=== PATIENT | female | born 1960 | race Caucasian/White ===

== ENCOUNTER → 2019-12-25 10:40 | Outpatient (BNVA) | payer BC, SELFPAY | PROVIDERS: PCP Internal Medicine; Visit Provider Internal Medicine Gastroenterology | DX: Z76.89 Persons encountering health services in other specified circumstances (principal) ==

== ENCOUNTER → 2020-03-25 09:38 | Outpatient (BNVA) | payer BC, SELFPAY | PROVIDERS: PCP Internal Medicine; Visit Provider Internal Medicine Gastroenterology | DX: Z76.89 Persons encountering health services in other specified circumstances (principal) ==

== ENCOUNTER → 2020-09-09 11:21 | Outpatient (BNVA) | payer BC, SELFPAY | PROVIDERS: PCP Internal Medicine; Visit Provider Internal Medicine Gastroenterology ==

== ENCOUNTER 2021-03-15 08:14 | Day surgery (SDC) | payer BC, SELFPAY ==
--- NOTE | 2021-03-14 10:49 | P.CONAN_ITS ---
Documented by User: Aruna Mann NP 03/14/21 10:53 HPI - Anesthesia Eval Consult details Narrative: 60yo F for Upper Endoscopy and Colonoscopy PMFSH Active Problems Active Problems: All Active Problems (Updated 12/25/19 @ 11:06 by Blaise Person MD) Constipation by delayed colonic transit (Acute) Past Medical History Medical History Hypothyroid Irritable bowel syndrome with constipation Family History Family History Father History of high blood pressure Mother No problems noted. Surgical History Surgical History History of colonoscopy Hx of endoscopy Social History Social History Alcohol intake: never Patient Tobacco Use Status: Never used Tobacco Use of substances other than those prescribed or required for medical reasons: No Are you DNR?: No Advance Directives: No Advance Directives Information Provided: Yes Recently lost weight without trying: No Meds Allergies Allergy/AdvReac Type Severity Reaction Status Date / Time erythromycin base Allergy Severe INABILITY Verified 09/09/20 11:22 [ERYTHROMYCIN BASE] TO FUNCTION Tetracyclines [TETRACYCLINES] Allergy Severe INABILITY Verified 09/09/20 11:22 TO FUNCTION levofloxacin [From LEVAQUIN] Allergy Intermediate HIVES Verified 09/09/20 11:22 Penicillins [PENICILLINS] Allergy Intermediate HIVES Verified 09/09/20 11:22 Home Medications Medication Instructions Recorded Confirmed Last Taken Type bupropion HCl 300 mg 24 hr tablet, 300 mg PO QAM 12/25/19 12/25/19 Unknown H istory extended release (Wellbutrin XL) cyanocobalamin (vitamin B-12) mcg IM 12/25/19 12/25/19 Unknown History 1,000 mcg/mL injection solution flu vacc [id number] 6mos up(PF) ml IM 12/25/19 12/25/19 Unknown History folic acid 0.8 mg capsule 0.8 mg PO DAILY 12/25/19 12/25/19 Unknown History lactobacillus combination no.8 3 3,000 mmu cells PO DAILY 12/25/19 12/25/19 Unknown History billion cell capsule (Adult Probiotic) levothyroxine 100 mcg tablet 100 mcg PO DAILY 12/25/19 12/25/19 Unknown History varicella-zoster glycoE [id number] 0.5 ml IM DIRECTED 12/25/19 12/25/19 Unknown History adj(PF) 50 mcg/0.5 mL IM susp, kit prucalopride 2 mg tablet 2 mg PO DAILY 03/25/20 Unknown History (Motegrity) Exam Exam Date and Time: March 14, 2021 1049 Assessment and Plan Assessment Anesthesia Assessment: Chart Reviewed Documented by User: Chrissy Bellamy MD 03/15/21 08:39 [facility] Past Medical History Medical History Hypothyroid Irritable bowel syndrome with constipation Functional capacity: independent ambulation Patient : No Family History Family History Father History of high blood pressure Mother No problems noted. Family history of problems with anesthesia: No Surgical History Surgical History History of colonoscopy Hx of endoscopy History of Problems with Anesthesia: No Social History Social History Alcohol intake: never Patient Tobacco Use Status: Never used Tobacco Use of substances other than those prescribed or required for medical reasons: No Are you DNR?: No Advance Directives: No Advance Directives Information Provided: Yes Recently lost weight without trying: No Meds Allergies Allergy/AdvReac Type Severity Reaction Status Date / Time erythromycin base Allergy Severe INABILITY Verified 09/09/20 11:22 [ERYTHROMYCIN BASE] TO FUNCTION Tetracyclines [TETRACYCLINES] Allergy Severe INABILITY Verified 09/09/20 11:22 TO FUNCTION levofloxacin [From LEVAQUIN] Allergy Intermediate HIVES Verified 09/09/20 11:22 Penicillins [PENICILLINS] Allergy Intermediate HIVES Verified 09/09/20 11:22 Home Medications Medication Instructions Recorded Confirmed Last Taken Type bupropion HCl 300 mg 24 hr tablet, 300 mg PO QAM 12/25/19 12/25/19 Unknown History extended release (Wellbutrin XL) cyanocobalamin (vitamin B-12) mcg IM 12/25/19 12/25/19 Unknown History 1,000 mcg/mL injection solution flu vacc [id number] 6mos up(PF) ml IM 12/25/19 12/25/19 Unknown History folic acid 0.8 mg capsule 0.8 mg PO DAILY 12/25/19 12/25/19 Unknown History lactobacillus combination no.8 3 3,000 mmu cells PO DAILY 12/25/19 12/25/19 Unknown History billion cell capsule (Adult Probiotic) levothyroxine 100 mcg tablet 100 mcg PO DAILY 12/25/19 12/25/19 Unknown History varicella-zoster glycoE [id number] 0.5 ml IM DIRECTED 12/25/19 12/25/19 Unknown History adj(PF) 50 mcg/0.5 mL IM susp, kit prucalopride 2 mg tablet 2 mg PO DAILY 03/25/20 Unknown History (Motegrity) Exam Airway Mallampati Class: II TM Dist: >3cm Neck ROM: Full Heart: RRR Lungs: CTA Assessment and Plan Final Anesthetic Review Family History of Problems with Anesthesia: No History of Problems with Anesthesia: No ASA Class: II Final Preanesthetic Review: No Changes in Pt Med Stat, Meds/Allgs Chart Reviewed, Consent Obtained/Reviewed and Anes Risks/Benef Reviewed Patient Risk: Low Procedure Risk: Low Anesthetic Plan Anesthetic Plan: GA and MAC: Disposition: Standard PACU
[2021-03-15 08:26] VITALS: BP 122/70; PULSE 71; RESP 14; TEMP 37.1; O2SAT 100; BMI 13.1
--- NOTE | 2021-03-15 08:45 | HO.ANESPROP2 ---
[facility] Active Problems Active Problems: All Active Problems (Updated 03/14/21 @ 10:53 by Aruna Mann NP) Constipation by delayed colonic transit (Acute) Past Medical History Medical History Hypothyroid Irritable bowel syndrome with constipation Functional capacity: independent ambulation Family History Family History Father History of high blood pressure Mother No problems noted. Family history of problems with anesthesia: No Surgical History Surgical History History of colonoscopy Hx of endoscopy History of Problems with Anesthesia: No Social History Social History Alcohol intake: never Patient Tobacco Use Status: Never used Tobacco Use of substances other than those prescribed or required for medical reasons: No Are you DNR?: No Advance Directives: No Advance Directives Information Provided: Yes Recently lost weight without trying: No Patient : No Meds Allergies Allergy/AdvReac Type Severity Reaction Status Date / Time erythromycin base Allergy Severe INABILITY Verified 09/09/20 11:22 [ERYTHROMYCIN BASE] TO FUNCTION Tetracyclines [TETRACYCLINES] Allergy Severe INABILITY Verified 09/09/20 11:22 TO FUNCTION levofloxacin [From LEVAQUIN] Allergy Intermediate HIVES Verified 09/09/20 11:22 Penicillins [PENICILLINS] Allergy Intermediate HIVES Verified 09/09/20 11:22 Active Medications: Current Medications Lactated Ringer's (Lr) 1,000 mls @ 100 mls/hr IVCONT .Q10H [facility] Home Medications Medication Instructions Recorded Confirmed Last Taken Type bupropion HCl 300 mg 24 hr tablet, 300 mg PO QAM 12/25/19 12/25/19 Unknown History extended release (Wellbutrin XL) cyanocobalamin (vitamin B-12) mcg IM 12/25/19 12/25/19 Unknown History 1,000 mcg/mL injection solution flu vacc [id number] 6mos up(PF) ml IM 12/25/19 12/25/19 Unknown History folic acid 0.8 mg capsule 0.8 mg PO DAILY 12/25/19 12/25/19 Unknown History lactobacillus combination no.8 3 3,000 mmu cells PO DAILY 12/25/19 12/25/19 Unknown History billion cell capsule (Adult Probiotic) levothyroxine 100 mcg tablet 100 mcg PO DAILY 12/25/19 12/25/19 Unknown History varicella-zoster glycoE [id number]-[id number] 0.5 ml IM DIRECTED 12/25/19 12/25/19 Unknown History adj(PF) 50 mcg/0.5 mL IM susp, kit prucalopride 2 mg tablet 2 mg PO DAILY 03/25/20 Unknown History (Motegrity) Exam Exam Date and Time: March 15, 2021 0845 Height,Weight and Vital Signs: Height 5 ft 2 in Weight 32.659 kg Last Vital Signs Temp 98.7 F 03/15/21 08:26 Pulse 71 03/15/21 08:26 Resp 14 03/15/21 08:26 BP 122/70 03/15/21 08:26 Pulse Ox 100 03/15/21 08:26 Airway Mallampati Class: II TM Dist: >3cm Neck ROM: Full Heart: RRR Lungs: CtA Assessment and Plan Final Anesthetic Review Family History of Problems with Anesthesia: No History of Problems with Anesthesia: No ASA Class: II Final Preanesthetic Review: No Changes in Pt Med Stat, Meds/Allgs Chart Reviewed, Consent Obtained/Reviewed and Anes Risks/Benef Reviewed Patient Risk: Low Procedure Risk: Low Anesthetic Plan Anesthetic Plan: MAC: Disposition: Standard PACU
[2021-03-15] MEDS: Lactated Ringers 1,000 ML 100 ML IVCONT (08:48)
--- NOTE | 2021-03-15 08:53 | MHC.SHP ---
Pre-Procedural Eval Section A Date of Service: 03/15/21 Section B Chief Complaint: Constipation, Weight Loss Relevant Family History (Specify if Yes): Yes Relevant Social History: None Present Medications: see Short Stay Collaborative assessment Medical History: Significant History (Hypothyroid Irritable bowel syndrome with constipation) History of Previous Operations: Relevant previous surgery/procedure and date(s) (hysterectomy and oophorectomy in 10/2019) Allergies: Allergies Allergy/AdvReac Type Severity Reaction Status Date / Time erythromycin base Allergy Severe INABILITY Verified 09/09/20 11:22 [ERYTHROMYCIN BASE] TO FUNCTION Tetracyclines [TETRACYCLINES] Allergy Severe INABILITY Verified 09/09/20 11:22 TO FUNCTION levofloxacin [From LEVAQUIN] Allergy Intermediate HIVES Verified 09/09/20 11:22 Penicillins [PENICILLINS] Allergy Intermediate HIVES Verified 09/09/20 11:22 Review of Systems Sugical H&P ROS: Negative: Constitution, Cardiovascular, Respiratory, Neurological, Psychiatric, Hem-Onc, Allergic/Immunologic, Gastrointestinal, Genitourinary, Musculoskeletal, Integumentary, Endocrine and Eyes/Ears/Nose/Throat Exam Surgical H&P Exam: Normal: HEENT, Normal: Heart, Normal: Lungs, Normal: Extremities, Normal: Abdomen, Normal: Skin and Normal: Neurological Plan Diagnosis/Plan: Unchanged I have reviewed the history and physical and performed a pertinent physical examination on my patient. No changes have occurred unless specified.
--- NOTE | 2021-03-15 10:01 | PM.OP ---
Brief Operative Note Date of Service: 03/15/21 Pre-op diagnosis: weight loss, constipation, hx of polyps Post-op diagnosis: same Procedure: see op note Surgeon: Blaise Person MD Anesthesia: MAC Was an Film Editor Supervisor used for this Procedure?: No Estimated blood loss (mL): 0 Condition: stable Disposition: PACU
--- NOTE | 2021-03-15 10:01 | W.PM.OPN ---
Operative Note Operative Note Date of Service: 03/15/21 Narrative: Operative Information Procedure Description: EGD, Colonoscopy FLEXIBLE TRANSORAL UPPER GASTROINTESTINAL ENDOSCOPY AND COLONOSCOPY PROCEDURE NOTE UPPER ENDOSCOPY Consent: Indications for the procedure and potential complications of bleeding, perforation, reaction to medications and missed diagnosis were discussed with the patient and informed consent was obtained. Instrument: Olympus GIF H 190 J mid size upper endoscope Monitoring: Vital signs and clinical assessment, continuous EKG monitoring, Pulse oximetry, Carbon Dioxide monitoring and blood pressure monitoring were done throughout the procedure. Procedure: The patient was placed in the left lateral decubitis position and pre-procedure medications were administered and a bite block was placed. The endoscope was inserted into the mouth and advanced under direct vision to the third part of duodenum. A careful inspection was made as the upper endoscope was withdrawn including a retroflexed examination of the proximal stomach; Findings and interventions are described below. Findings: Larynx:normal Esophagus: GE junction at 36 cm, diaphragm hiatus at 36 cm, possible barretts short segment with mild esophagitis, bx taken from GEJ and random esophagus Stomach: Normal mucosa. Scattered fundic gland polyps. Biopsies were obtained from pylorus, greater curve, lesser curve, and fundus, angularis.. Grade 2 flap valve on retroflexed examination of the cardia. Duodenum: Normal bulb and descending duodenum, bx taken Intervention: Biopsies as noted above COLONOSCOPY Instrument: Olympus variable stiffness pediatric scope 190L Colonoscopy Monitoring: Vital signs and clinical assessment, continuous EKG monitoring, Pulse oximetry, Carbon Dioxide monitoring and blood pressure monitoring were done throughout the procedure. Colon withdrawal time was 14 minutes. Procedure: The patient was placed in the left lateral decubitis position and pre-procedure medications were administered. After a digital rectal examination of the ano-rectum, the video colonoscope was inserted into the rectum and advanced through the colon to the cecum/TI. The colonoscope was slowly withdrawn in a retrograde panoramic fashion and the colon mucosa was carefully examined including a retroflexed view of the rectum. Findings and interventions are described below. Procedure Difficulty: easy Patchy areas of melanosis coli Findings: Terminal Ileum-normal, bx taken bx taken from right, left, transverse and rectum in separate jars. Cecum:normal Ascending Colon: normal, prior tattoo from her last colonoscopy noted in distal ascending colon Transverse Colon -normal Descending Colon:normal Sigmoid Colon: normal Rectum: Retroflexion with small internal hemorrhoids, grade I Anorectum - normal Colon preparation: [place] Bowel Preparation Scale Right colon; 2 Transverse colon: 2 Left colon; 2 (0 = Unprepared colon segment with mucosa not seen due to solid stool that cannot be cleared. 1 = Portion of mucosa of the colon segment seen, but other areas of the colon segment not well seen due to staining, residual stool and/or opaque liquid. 2 = Minor amount of residual staining, small fragments of stool and/or opaque liquid, but mucosa of colon segment seen well. 3 = Entire mucosa of colon segment seen well with no residual staining, small fragments of stool or opaque liquid) Impression and Post Procedure Diagnosis: Endoscopy Findings: possible barretts esophagitis fundic gland polyps Colonoscopy Findings: internal hemorrhoids melanosis coli Plan: Await Pathology results Repeat Colonoscopy in 5 years due to hx of polyps or earlier if clinically indicated High fiber diet leaflet avoid straining at stool, epsom salts and sitz bath, anusol supps or cream Above findings were reviewed with the patient and relevant handouts were provided if indicated.
[2021-03-15 10:07] VITALS: BP 117/45; PULSE 68; RESP 16; TEMP 36.1; O2SAT 100
[2021-03-15 10:21] VITALS: BP 127/58; PULSE 66; RESP 16; TEMP 36.1; O2SAT 100
--- NOTE | 2021-03-15 12:00 | HO.POSTANES ---
Post Anesthesia Evaluation Post Anesthesia Evaluation Vital Signs: Vital Signs Temp Pulse Resp BP Pulse Ox 03/15/21 10:21 97 F 66 16 127/58 L 100 03/15/21 10:07 97 F 68 16 117/45 L 100 03/15/21 08:26 98.7 F 71 14 122/70 100 Anesthesia: Monitored Mental Status: Awake Pain Control: Satisfactory Nausea/Vomiting: None Hydration: Adequate Anesthesia-Related Issues: No Anes. Related Issues
== END 2021-03-15 11:05 ==
LOC: HO.SSS 08:14
PROVIDERS: PCP Internal Medicine; Visit Provider Internal Medicine Gastroenterology
PROC: (CPT 45380; principal; 2021-03-15 09:20)
DX: K59.09 Other constipation (principal); Z86.010 Personal history of colon polyps; K63.89 Other specified diseases of intestine; R63.4 Abnormal weight loss; K64.0 First degree hemorrhoids; K31.7 Polyp of stomach and duodenum; K20.80 Other esophagitis without bleeding; K44.9 Diaphragmatic hernia without obstruction or gangrene; E03.9 Hypothyroidism, unspecified; Z79.899 Other long term (current) drug therapy; Z88.0 Allergy status to penicillin; Z88.1 Allergy status to other antibiotic agents
CPT/HCPCS: 45380; 43239; 88305; 88342; J2370

== ENCOUNTER → 2021-03-28 09:24 | Outpatient (BNVA) | payer BC, SELFPAY | PROVIDERS: PCP Internal Medicine; Visit Provider Internal Medicine Gastroenterology ==

== ENCOUNTER → 2021-07-14 08:52 | Outpatient (BNVA) | payer BC, SELFPAY | PROVIDERS: PCP Internal Medicine; Visit Provider Psychiatry & Neurology Neurology | DX: Z13.89 Encounter for screening for other disorder (principal) ==

== ENCOUNTER → 2022-04-23 10:45 | Outpatient (BNVA) | payer BC, SELFPAY | PROVIDERS: PCP Internal Medicine; Visit Provider Psychiatry & Neurology Neurology | DX: F41.9 Anxiety disorder, unspecified (principal); R41.89 Other symptoms and signs involving cognitive functions and awareness; D32.9 Benign neoplasm of meninges, unspecified ==

== ENCOUNTER → 2022-07-09 08:56 | Outpatient (BNVA) | payer BC, SELFPAY | PROVIDERS: PCP Internal Medicine; Visit Provider Psychiatry & Neurology Neurology | DX: Z13.89 Encounter for screening for other disorder (principal) ==

== ENCOUNTER 2022-08-22 15:40 | Outpatient (REF) | payer BC, SELFPAY ==
--- NOTE | ~2022-08-22 | MR_ITS ---
EXAMINATION: MR BRAIN WITHOUT CONTRAST CLINICAL INFORMATION: Follow-up meningioma COMPARISON: MRI brain 06/28/2020 TECHNIQUE: MRI of the brain was obtained using routine sequences without contrast. FINDINGS: Stable 5 mm densely calcified mass along the lateral right frontal convexity most suggestive of a calcified meningioma. No significant mass effect on the subjacent brain parenchyma or vasogenic edema. No acute infarct. No acute intracranial hemorrhage or extra-axial fluid collection. Stable small to moderate generalized parenchymal volume loss punctate a few scattered punctate T2 FLAIR hyperintense foci in the subcortical and periventricular white matter no clinical significance. T2 FLAIR hyperintense focus in the right periatrial white matter of no clinical significance. Normal intracranial arterial and dural venous sinus flow voids. Normal appearance of the midline structures. The orbits are grossly unremarkable. Worsening paranasal sinus mucosal disease with moderate ethmoid air cell mucosal thickening and increased mild left greater than right maxillary mucosal thickening. New air-fluid level in the left maxillary sinus and retention cyst/polyp in the right maxillary sinus alveolar recess. New left mastoid effusion. Retention cysts in the fossa of Rosenmuller in the nasopharynx, larger on the left. Normal marrow signal. Cervical spondylosis, incompletely imaged. MR/MR head/brain wo con IMPRESSION: Stable 5 mm densely calcified mass along the lateral right frontal convexity most suggestive of a calcified meningioma. No significant mass effect on the subjacent brain parenchyma or vasogenic edema. Worsening paranasal sinus mucosal disease as above, including air-fluid level in the left maxillary sinus, which can be correlated clinically for acute sinusitis.
== END 2022-08-22 15:41 | disposition home or self-care (01) ==
LOC: HO.MRI 15:40
PROVIDERS: PCP Internal Medicine; Visit Provider Psychiatry & Neurology Neurology
DX: D32.9 Benign neoplasm of meninges, unspecified (principal)
CPT/HCPCS: 70551

== ENCOUNTER 2022-10-23 07:58 | Outpatient (REF) | payer BC, SELFPAY ==
--- NOTE | 2022-10-23 08:02 | EEG_ITS ---
FINDINGS: The waking background activity consists of a moderate voltage, well-defined 8 to 9 hertz alpha frequency intermixed anteriorly with low-voltage fast frequencies. Photic stimulation is without activation. Hyperventilation was omitted. No sleep stages are identified. No focal, lateralizing, or paroxysmal discharges are seen. IMPRESSION: This waking EEG is within normal limits. MD MOODY Flores/BELA / [id number]
== END 2022-10-23 07:59 | disposition home or self-care (01) ==
LOC: HO.NEURO 07:58
PROVIDERS: PCP Internal Medicine; Visit Provider Psychiatry & Neurology Neurology
DX: R41.89 Other symptoms and signs involving cognitive functions and awareness (principal)
CPT/HCPCS: 95816

== ENCOUNTER 2022-12-03 09:23 | Outpatient (AMB) | payer BC, SELFPAY ==
--- NOTE | 2022-12-03 09:28 | MHC.OFFVIS ---
Intake Vital Signs 12/03/22 09:30 Height 5 ft 1 in Weight 135 lb 6 oz BMI 25.6 BP 140/66 H Blood Pressure Location Rt brachial Position Sitting Pulse 72 Pulse Source Pulse Oximeter Pulse Oximetry (%) 95 Oxygen Delivery Method Room Air Intake Visit Reasons: 6m f/u memory issues-confirmed Intake Note: Pt presents to the office today for a 6 month follow up memory issues. Pt states she has been doing well. Patients states he believes her motor skills may have declined a little but otherwise nothing else has gotten worse since she was last seen. Accompanied by: Spouse Allergies erythromycin base [ERYTHROMYCIN BASE] Allergy (Severe, Verified 12/03/22 09:32) INABILITY TO FUNCTION Tetracyclines [TETRACYCLINES] Allergy (Severe, Verified 12/03/22 09:32) INABILITY TO FUNCTION levofloxacin [From LEVAQUIN] Allergy (Intermediate, Verified 12/03/22 09:32) HIVES Penicillins [PENICILLINS] Allergy (Intermediate, Verified 12/03/22 09:32) HIVES Medication List - Last Reconciled 12/03/22 by Aster Davidson MD calcium carbonate (Calcium) 600 mg PO DAILY cholecalciferol (vitamin D3) 25 mcg PO DAILY escitalopram oxalate 10 mg PO DAILY fluticasone propionate 50 mcg/actuation (Flonase Allergy Relief) 1 spray intranasal DAILY folic acid 0.8 mg PO DAILY lactobacillus combination no.8 (Adult Probiotic) 3,000 mmu cells PO DAILY levothyroxine 100 mcg PO DAILY levothyroxine (Synthroid) 88 mcg PO DAILY omeprazole 20 mg PO DAILY 90 days HPI HPI Comments History of Present Illness Details ???Right frontal meningioma ANorexia ?62y/o female comes for follow up.Her reports stable cognitive issues but has noticed some motor difficulty . she has trouble getting in and out of car. she has gained weight, working with operating room surgical technician but still has trouble complying.she is working with her therapist. CT head , EKG , labs were done. [facility]. She was told that CT showed ? NPH she reports difficulty with memory , word finding difficulties , foggy. loses her thought. Neuropsych testing is consistent with mild cognitive impairment - likely related to mood. [facility] Medical History Immunoglobulin deficiency Anorexia Graves disease Irritable bowel syndrome with constipation Hypothyroid Surgical History H/O: hysterectomy Hx of endoscopy History of colonoscopy Family History Father History of high blood pressure Mother No problems noted. Social History Alcohol intake: never Patient Tobacco Use Status: Never used Tobacco Physical Exam Vital Signs: Last Vital Signs Pulse 72 12/03/22 09:30 BP 140/66 H 12/03/22 09:30 Pulse Ox 95 12/03/22 09:30 Oxygen Delivery Method Room Air 12/03/22 09:30 BMI result Body Mass Index 25.6 Const General: cooperative, healthy appearing, comfortable and no acute distress Nutritional Appearance: average body habitus Orientation/consciousness: patient oriented x3 Neuro General: patient oriented x3, tone normal, moves all extremities, no focal motor deficits and CN's II-XI intact bilaterally Psych Speech and movement: Slurred speech present and Slowed movement present (Neuro) Affect: Blunted affect present Orientation What is the (year) (season) (date) (day) (month)?: year, season, date, day and month Where are we (state) (county) (town or city) (hospital) (floor)?: state, town or city, hospital/clinic and floor Registration Name of 3 unrelated objects clearly and slowly, then ask patient to repeat all 3 of them. (1st repeat determines score. Make sure they can repeat all three): object 1, object 2 and object 3 Attention & Calculation (CHOOSE ONE) Spell WORLD backwards (DLROW): 5 letters Recall Ask patient to repeat the 3 items from question #3.: object 1, object 2 and object 3 Language Show patient a wristwatch & ask what it is. Repeat for pencil.: watch and pencil Ask the patient to repeat the phrase 'No ifs, ands, or buts' after you.: correct Ask the patient to 'take a piece of paper with their right hand' 'fold paper in half' 'place paper on floor': take paper in right hand, fold paper in half and place paper on floor Print the sentence 'CLOSE YOUR EYES' on a piece. If patient actually closes eyes then score.: followed written direction Give patient a blank piece of paper & ask to write a sentence. Score if it contains a noun & verb.: sentence contains subject and verb Ask patient to copy figure of intersecting pentagons exactly. Score if all 10 angles & 2 intersects are included.: all 10 angles present & 2 are intersected Score Score: 29 Assessment & Plan Assessment & Plan (1) Cognitive change: Code(s): R41.89 - Other symptoms and signs involving cognitive functions and awareness (2) Meningioma: Code(s): D32.9 - Benign neoplasm of meninges, unspecified (3) Anxiety: Code(s): F41.9 - Anxiety disorder, unspecified Plan F/u therapist . Psychiatry evaluation MRI- reviewed Meningioma reviewed neuropsyhc evaluation - repeat She did well on MMSE- her cognitive issues are likely related to poorly controlled mood disorder. Orders: Referrals Neuropsychiatry Referral F41.9 - Anxiety disorder, unspecified, R41.89 - Other symptoms and signs involving cognitive functions and awareness, R63.0 - Anorexia Medications: Changed From escitalopram oxalate 10 mg PO DAILY To escitalopram oxalate 20 mg PO DAILY 30 tabs 6RF Coding Level of Care Code Est Pt Level 4 (22069) Diagnoses Cognitive change R41.89 Meningioma D32.9 Anxiety F41.9
[2022-12-03 09:30] VITALS: BP 140/66; PULSE 72; O2SAT 95; BMI 25.6
== END 2022-12-03 10:06 | disposition home or self-care (01) ==
PROVIDERS: PCP Internal Medicine; Visit Provider Psychiatry & Neurology Neurology
DX: R41.89 Other symptoms and signs involving cognitive functions and awareness (principal); D32.9 Benign neoplasm of meninges, unspecified; F41.9 Anxiety disorder, unspecified
CPT/HCPCS: 99214

== ENCOUNTER → 2022-12-03 09:23 | Outpatient (BNVA) | payer BC, SELFPAY | PROVIDERS: PCP Internal Medicine; Visit Provider Psychiatry & Neurology Neurology ==

== ENCOUNTER 2023-01-09 09:05 | Outpatient (AMB) | payer BC, SELFPAY ==
--- NOTE | 2023-01-09 09:52 | A.OFFVIS_ITS ---
Intake Vital Signs 01/09/23 09:53 Height 5 ft 1 in Weight 135 lb 6 oz BMI 25.6 BP 142/80 H Blood Pressure Location Lt brachial Position Sitting Respiration 16 Pulse 75 Pulse Source Pulse Oximeter Pulse Oximetry (%) 97 Oxygen Delivery Method Room Air Intake Visit Reasons: 6 month follow up-confirmed Intake Note: Pt presents to the office for a 6 month follow up for anxiety. She reports she has seen no change in her symptoms since her last visit. 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: No Allergies erythromycin base [ERYTHROMYCIN BASE] Allergy (Severe, Verified 01/09/23 09:53) INABILITY TO FUNCTION Tetracyclines [TETRACYCLINES] Allergy (Severe, Verified 01/09/23 09:53) INABILITY TO FUNCTION levofloxacin [From LEVAQUIN] Allergy (Intermediate, Verified 01/09/23 09:53) HIVES Penicillins [PENICILLINS] Allergy (Intermediate, Verified 01/09/23 09:53) HIVES Medication List - Last Reconciled 01/09/23 by Aster Davidson MD calcium carbonate (Calcium) 600 mg PO DAILY cholecalciferol (vitamin D3) 25 mcg PO DAILY escitalopram oxalate 20 mg PO DAILY fluticasone propionate 50 mcg/actuation (Flonase Allergy Relief) 1 spray intranasal DAILY folic acid 0.8 mg PO DAILY lactobacillus combination no.8 (Adult Probiotic) 3,000 mmu cells PO DAILY levothyroxine 100 mcg PO DAILY levothyroxine (Synthroid) 88 mcg PO DAILY omeprazole 20 mg PO DAILY 90 days HPI HPI Comments History of Present Illness Details ???Right frontal meningioma ANorexia ?62y/o female comes for follow up.she is alone today for the visit. she has gained weight, working with machine bander and cellophaner helper but still has trouble complying.she is working with her therapist. CT head , EKG , labs were done. she went to [facility]. She was told that CT showed ? NPH she reports difficulty with memory , word finding difficulties , foggy. loses her thought. she still has not seen a psychiatrist.she is working with a therapist. Neuropsych testing is consistent with mild cognitive impairment - likely related to mood. [facility] Medical History Immunoglobulin deficiency Anorexia Graves disease Irritable bowel syndrome with constipation Hypothyroid Surgical History H/O: hysterectomy Hx of endoscopy History of colonoscopy Family History Father History of high blood pressure Mother No problems noted. Social History Alcohol intake: never Patient Tobacco Use Status: Never used Tobacco Physical Exam Vital Signs: Last Vital Signs Pulse 75 01/09/23 09:53 Resp 16 01/09/23 09:53 BP 142/80 H 01/09/23 09:53 Pulse Ox 97 01/09/23 09:53 Oxygen Delivery Method Room Air 01/09/23 09:53 BMI result Body Mass Index 25.6 Const General: cooperative, healthy appearing, comfortable and no acute distress Nutritional Appearance: average body habitus Orientation/consciousness: patient oriented x3 Neuro General: patient oriented x3, tone normal, moves all extremities, no focal motor deficits and CN's II-XI intact bilaterally Psych Speech and movement: Slurred speech present and Slowed movement present (Neuro) Affect: Blunted affect present Assessment & Plan Assessment & Plan (1) Cognitive change: Code(s): R41.89 - Other symptoms and signs involving cognitive functions and awareness (2) Meningioma: Code(s): D32.9 - Benign neoplasm of meninges, unspecified (3) Anxiety: Code(s): F41.9 - Anxiety disorder, unspecified Plan F/u therapist . Psychiatry evaluation MRI- reviewed Meningioma reviewed neuropsyhc evaluation - repeat She did well on MMSE- her cognitive issues are likely related to poorly co ntrolled mood disorder. Medications: Discontinued sumatriptan succinate Discontinued Reason: Doctor's Order take 1 tab at onset of headache; if no relief, may repeat 1 tab after at least 2 hrs; max = 2 tabs/24 hrs PO 14 tabs 0RF Coding Level of Care Code Est Pt Level 4 (10266) Diagnoses Cognitive change R41.89 Meningioma D32.9 Anxiety F41.9
[2023-01-09 09:53] VITALS: BP 142/80; PULSE 75; RESP 16; O2SAT 97; BMI 25.6
== END 2023-01-09 10:29 | disposition home or self-care (01) ==
PROVIDERS: Visit Provider Psychiatry & Neurology Neurology
DX: R41.89 Other symptoms and signs involving cognitive functions and awareness (principal); D32.9 Benign neoplasm of meninges, unspecified; F41.9 Anxiety disorder, unspecified
CPT/HCPCS: 99214

== ENCOUNTER → 2023-01-09 09:05 | Outpatient (BNVA) | payer BC, SELFPAY | PROVIDERS: Visit Provider Psychiatry & Neurology Neurology ==

== ENCOUNTER 2024-12-02 11:49 | Outpatient (REF) | payer BC, SELFPAY ==
--- OUTSIDE RECORDS SUMMARY | 2024-12-02 14:48 | XMS_ITS ---
Author Name [facility] Organization Unknown Results Test Name/Text Value Interpretation Date Range Source ALCOHOL (BLOOD) <3.0 Normal 11/28/2024 - 3 [facility] BILIRUBIN,TOTAL 0.3 mg/dL Normal 11/28/2024 0.3 - 1.2 [facility] ALBUMIN 4.6 g/dL Normal 11/28/2024 3.2 - 4.8 [facility] BUN 27.0 mg/dL Above high normal 11/28/2024 9 - 23 [facility] SODIUM 145.0 mmol/L Normal 11/28/2024 136 - 145 [facility] ALT (SGPT) 13.0 U/L Normal 11/28/2024 10 - 49 [facility] POTASSIUM SERUM 4.0 mmol/L Normal 11/28/2024 3.5 - 5.1 CT [facility] CO2 25.0 mmol/L Normal 11/28/2024 20 - 31 [facility] H CHLORIDE 109.0 mmol/L Above high normal 11/28/2024 98 - 107 [facility] AST (SGOT) 15.0 U/L Normal 11/28/2024 0 - 34 [facility] ALKALINE PHOSPHATASE 121.0 U/L Normal 11/28/2024 45 - 129 [facility] BUN/CREAT.RATIO 25.7 Normal 11/28/2024 [facility] A/G RATIO 2.9 g/dL Normal 11/28/2024 [facility] GLOBULIN 1.6 g/dL Below low normal 11/28/2024 2.2 - 3.5 CT [facility] GLUCOSE 99.0 mg/dL Normal 11/28/2024 74 - 106 [facility] CREATININE 1.05 mg/dL Above high normal 11/28/2024 0.55 - 1. 02 [facility] PROTEIN, TOTAL 6.2 g/dL Normal 11/28/2024 5.7 - 8.2 [facility] PATIENT FASTING? UNKNOWN Normal 11/28/2024 CT [facility] MAGNESIUM 2.2 mg/dL Normal 11/28/2024 1.6 - 2.6 [facility] T4 FREE 1.17 ng/dL Normal 11/29/2024 0.89 - 1.76 [facility] TSH 0.54 uIU/mL Below low normal 11/28/2024 0.55 - 4.7 8 [facility] GFRE 56.0 Below low normal 11/28/2024 60 - CT [facility] AMMONIA < 10 Below low normal 11/28/2024 11 - 32 [facility] ABSOLUTE NUCLEATED RBC 0.0 K/uL Normal 11/28/2024 0 - 0. 012 [facility] RDW 14.6 % Above high normal 11/28/2024 11.1 - 13.3 [facility] IMMATURE GRANULOCYTES 0.0 % Normal 11/28/2024 0 - 0.4 5 [facility] NUCLEATED RBC 0.0 % Normal 11/28/2024 0 - 0.2 [facility] RBC 4.16 M/uL Normal 11/28/2024 4 - 5.4 [facility] ABSOLUTE LYMPHS 1.2 K/uL Below low normal 11/28/2024 1.5 - 4.9 [facility] ABSOLUTE MONOS 0.4 K/uL Normal 11/28/2024 0.2 - 1.5 [facility] ABSOLUTE IMMATURE GRANULOCYTES 0.0 K/uL Normal 11/28/2024 0 - 0.3 [facility] BASOPHILS 1.0 % Normal 11/28/2024 0 - 2 [facility] MPV 10.0 fL Normal 11/28/2024 8 - 12 [facility] MCH 30.0 PG Normal 11/28/2024 27 - 34 [facility] MCV 94.0 fL Normal 11/28/2024 83 - 102 [facility] ABSOLUTE EOS 0.1 K/uL Normal 11/28/2024 0 - 0.7 [facility] LYMPHS 23.0 % Normal 11/28/2024 16 - 50 [facility] GRANULOCYTES 68.0 % Normal 11/28/2024 23 - 78 [facility] PLATELET COUNT 237.0 K/uL Normal 11/28/2024 150 - 480 [facility] ABSOLUTE GRANULOCYTES 3.6 K/uL Normal 11/28/2024 2.2 - 7 .3 [facility] MONOCYTES 7.0 % Normal 11/28/2024 0 - 12 [facility] EOSINOPHILS 2.0 % Normal 11/28/2024 0 - 6 [facility] H MCHC 32.4 g/dL Normal 11/28/2024 31 - 36 [facility] WBC 5.3 K/uL Normal 11/28/2024 3.7 - 10.3 [facility] HCT 38.9 % Normal 11/28/2024 36 - 46 [facility] HGB 12.6 g/dL Normal 11/28/2024 12.1 - 15.7 [facility] H ABSOLUTE BASO 0.0 K/uL Normal 11/28[facility]2024 [facility] Normal 11/28[facility]2024 [facility] AMPHETAMINES Negative Normal 11/28/2024 - [facility] COCAINE Negative Normal 11/28/2024 - [facility] OPIATES Negative Normal 11/28/2024 - [facility] BARBITURATES Negative Normal 11/28/2024 - [facility] BENZODIAZEPINES Negative Normal [facility]/28[facility]20[facility] Normal 11/28/2024 [facility] RBC 2.0 /HPF Above high normal 11/28/2024 0 - 0 C [facility] WBC 1.0 /HPF Above high normal 11/28/2024 0 - 0 C [facility] LEUK. ESTERASE NEG Normal 11/28/2024 - [facility] PROTEIN NEG Normal 11/28/2024 - [facility] APPEARANCE CLEAR Normal 11/28/2024 - [facility] KETONES NEGATIVE Normal 11/28/2024 - [facility] BLOOD NEG Normal 11/28/2024 - [facility] COLOR YELLOW Normal 11/28/2024 - [facility] GLUCOSE NEG Normal 11/28/2024 - [facility] PH 6.0 Normal 11/28/2024 5 - 8 [facility] BILIRUBIN NEGATIVE Normal 11/28/2024 - [facility] UROBILINOGEN 0.2 MG/DL Normal 11/28/2024 - [facility] SPECIFIC GRAVITY >=1.030 Critically abnormal 11/28/2024 1.005 - 1.03 [facility] NITRITE [facility]G Normal [facility]/28[facility]2024 [facility] SerPl-mCnc 55.0 mg/dL Below low normal 09/05/2023 70 - 3 20 [facility] IgA2 Ser-mCnc 12.0 mg/dL Below low normal 09/05/2023 13 - 91 [facility] IgA SerPl-mCnc 55.0 mg/dL Below low normal 09/05/2023 70 - 3 20 [facility] IgA1 Ser-mCnc 43.0 mg/dL Below low normal 09/05/2023 46 - 37 8 [facility] IgG1 Ser-mCnc 327.0 mg/dL Below low normal 09/05/2023 382 - 929 [facility] IgG SerPl-mCnc 548.0 mg/dL Below low normal 09/05/2023 600 - 1540 [facility] IgG3 Ser-mCnc 33.0 mg/dL Normal 09/05/2023 22 - 178 [facility] IgG2 Ser-mCnc 122.0 mg/dL Below low normal 09/05/2023 241 - 700 [facility] IgG4 Ser-mCnc 28.6 mg/dL Normal 09/05/2023 4 - 86 [facility] IgE SerPl-aCnc 8.0 kU/L Normal 09/05/2023 - [facility] IgM SerPl-mCnc 41.0 mg/dL Below low normal 09/05/2023 50 - 3 00 [facility] FLEXITEST 1 FLEXITEST 1 Normal 01/29/2023 - [facility] FLEXITEST 1 FLEXITEST 1 Normal 01/28/2023 - [facility] FLEXITEST 1 FLEXITEST 1 Normal 01/25/2023 - [facility] History of Medication Use Medication Directions Dispensed Refills Start Date End Date Stat us 02/24/2023 completed 02/24/2023 completed 02/24/2023 completed 09/13/2022 completed 06/19/2022 completed 11/17/2021 completed Allergies Allergen Reaction Severity Comment Documented Date Source Statu s ERYTHROMYCIN CANNOT FUNCTION Unknown CT_[facility] LEVAQUIN RASH Unknown [facility] TETRACYCLINE CANNOT FUNCTION Unknown [facility] Encounters Encounter Type Encounter Reason Primary Diagnosis Location Date Emergency AGITATION,CONFUSION AGITATION,CONFUSION P [facility] 11/28/2024 Ambulatory 6 MO ASYMM 6 MO ASYMM [facility] 11/21/2023 Ambulatory F/U R BREAST ASYMMETRY SCREEN L F/U R BREAST ASYMMETRY SCREEN L [facility] 05/16/2023 Ambulatory [facility] 01/15/2023 Ambulatory [facility] 12/27/2022 Ambulatory [facility] 2022 Ambulatory BR NODULE BR NODULE [facility] 10/08/2022 Emergency AMS/WEAKNESS AMS/WEAKNESS [facility]. 07/06/2022 Ambulatory [facility] 04/10/2022 Ambulatory BREAST CA SCREENING BREAST CA SCREENING P [facility] 03/29/2022 Care Team Organization Name Specialty Phone Email Start Date End Da te [facility] Primary Care 11/28/2024 [facility] Primary Care 11/28/2024 [facility] [employer]raving [facility] 07/08/2024 5 [facility] No provided Primary Care 11/21/2023 [facility]ar Primary Care 04/17/2023 [facility] 03/31/2023 [facility] 10/31/2022 [facility] 08/13/2022 [facility] director Not Primary Care 07/07/2022 [facility] Primary Care 07/06/202207/06 3 [facility] 04/10/2022 04/10/19 2 3 [facility] 04/10/2022 [facility] MARGARITA SPICER-COLASACCO Primary Care 03/29/2022 03/29/19 2 3 [facility] DennisCorobyn Agueroabela Primary Care 02/06/2022 [facility] Imelda Lopez Primary Care
--- OUTSIDE RECORDS SUMMARY | 2024-12-02 14:48 | XMS_ITS | Clinical Summary ---
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 Penicillins Hives High 12/31/2013 Level of certainty: Moderately Certain Tetracycline Rash Low 06/14/2014 Other reaction(s): Other (see comments) lethargy Not functional, unable to put a sentence together Tetracyclines & Related 03/29/2023 Other reaction(s): Other (See Comments), Unknown Level of certainty: Uncertain; Other Reaction(s): Confusion/delirium Level of certainty: Uncertain Other Reaction(s): Confusion/delirium Thimerosal (Thiomersal) Other (See Comments) 10/10/2016 Had eye problem after using contact solution with thimerosal so now avoids vaccines with thimerosal Medications Medication Sig Dispensed Refills Start Date End Date Status fexofenadine (MILTON) 60 MG tablet Take 1 tablet (60 mg total) by mouth daily as needed. 0 Active fluconazole (DIFLUCAN) 150 MG tablet daily as needed. 0 03/23/2014 Activ e fluticasone (FLONASE) 50 MCG/ACT nasal spray spray or apply 2 sprays inside Nose daily. 0 Active Ospemifene (OSPHENA) 60 MG TABS Take 1 tablet by mouth daily. 0 Active SYNTHROID 100 MCG tablet 0 05/28/2017 Active Folic Acid 0.8 MG CAPS take 1 tab daily po 0 Active Cholecalciferol (VITAMIN D3 PO) daily. 0 Active cyanocobalamin (VITAMIN B12) 1000 MCG/ML injection 0 04/08/2019 Active omeprazole (PriLOSEC) 20 MG capsule 1 CAPSULE 30 MINUTES BEFORE MORNING MEAL ONCE A DAY ORALLY 30 DAY(S) 0 05/25/2019 Active Divigel 1.25 MG/1.25GM GEL APPLY 1 PACKET BY TOPICAL ROUTE DAILY FOR 70 DAYSNOT COVERED 0 09/15/2020 Active levothyroxine (SYNTHROID) tablet 100 mcg Take 1 tablet (100 mcg total) by mouth daily. 0 03/24/2019 Active escitalopram (LEXAPRO) tablet 10 mg Take 1 tablet (10 mg total) by mouth daily. 0 09/19/2022 Active mirtazapine (REMERON) 15 MG tablet Take 1 tablet (15 mg total) by mouth every night at bedtime. 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 Basal cell carcinoma (BCC) 11/15/2021 Overview: nose BCC Anorexia 11/21/2020 Hypokalemia 07/15/2020 Renal function test abnormal 07/15/2020 Allergic asthma 06/12/2017 Cobalamin deficiency 06/12/2017 Depression 06/12/2017 Environmental and seasonal allergies 06/12/2017 Overview: Overview: mold, dogs, cats Non-celiac gluten sensitivity 06/12/2017 Graves' disease 06/12/2017 Overview: Overview: Normal ocular exam No diplopia No lid retraction Normal ocular exam No diplopia No lid retraction Normal ocular exam No diplopia No lid retraction Hypothyroidism following radioiodine therapy 06/2017 Reactive hypoglycemia 06/12/2017 History of laser assisted in situ keratomileusis 06/12/2017 Overview: Overview: Minimal resid ref error Manifest refraction Minimal resid ref error Manifest refraction Minimal resid ref error Manifest refraction Encounter for screening for diseases of the blood and blood-forming organs and certain disorders involving the immune mechanism 06/12/2017 Predisposition to allergic reaction 06/12/2017 Overview: mold, dogs, cats mold, dogs, cats Iron deficiency anemia 05/31/2017 Intracranial meningioma 01/01/2017 Chronic constipation 12/10/2016 Esophagitis 11/28/2016 Polyp of gallbladder 11/28/2016 Overview: Overview: 3mm, no change on serial testing 3mm, no change on serial testing 3mm, no change on serial testing 3 mm, no change on serial testing Gastroesophageal reflux disease 11/28/2016 Hemorrhoids 11/28/2016 Overview: Internal and External from Colonoscopy 10/12/2010 Irritable bowel syndrome 11/28/2016 Rosacea 11/28/2016 Tubular adenoma of colon 11/28/2016 History of anemia due to vitamin B12 deficiency 11/28/2016 12/05/2022 Depressive disorder 11/27/2016 Immunoglobulin deficiency 11/27/2016 Lactose intolerance 11/27/2016 Osteopenia 11/27/2016 Overview: repeat bone density in 2019 Hypothyroidism 11/27/2016 Hypogammaglobulinemia 10/10/2016 Chronic fatigue 10/10/2016 Personal history of diseases of the blood and blood-forming organs and certain disorders involving the immune mechanism 10/10/2016 Allergic rhinitis due to animal hair and dander 10/10/2016 Allergy to drug 10/10/2016 Allergic rhinitis due to animals 10/10/2016 11/06/2023 History of colonic polyps 05/21/2016 Weight loss 03/17/2016 Decrease in appetite 01/03/2016 Health care maintenance 12/16/2015 Overview: Check if completed DATE COMPLETED RESULT DUE DEFERRED [x] Mammogram due normal [] [x] Pap smear 06/2015 normal 2016 [] [x] Colonoscopy 2010 polyp 2015 [] [] DEXA [] [] [] Stage 3 chronic kidney disease 12/15/2015 Bilateral cataracts 08/17/2015 Overview: Overview: V minimal V minimal V minimal Immunizations Name Administration Dates Next Due Influenza Quad (Afluria/Fluz one) 0.5mL >=6mon Vial (SD-IIV4) 12/15/2015 Influenza Trivalent (Fluzone /Afluria) 5.0mL Multi-dose Vial 11/05/2016 Pneumococcal Polysaccharide PPSV23 10/29/2016 Tdap 01/24/2015 Family History Medical History Relation Name Comments Allergic rhinitis Brother Atopy Brother bee allergy Diabetes Father Heart disease Father Other Father committed suici de ALS Maternal Grandmother Dementia Maternal Uncle Allergic rhinitis Mother Dementia Mother Diabetes Paternal Grandfather Diabetes Paternal Grandmother Allergic rhinitis Sister Breast cancer Sister Asthma Neg Hx Relation Name Status Comments Brother Alive Father Maternal Grandmother Maternal Uncle Mother Paternal Grandfather Paternal Grandmother Sister Social History Tobacco Use Types Packs/Day Years Used Date Smoking Tobacco: Never Smokeless Tobacco: Never Tobacco Cessation:Counseling Given: Not Answered Alcohol Use Standard Drinks/Week Comments Yes 0 (1 standard drink = 0.6 oz pur e alcohol) rarely Sex and Gender Information Value Date Recorded Sex Assigned at Not on file Gender Identity Not on file Sexual Orientation Not on file Job Start Date Occupation Industry Not on file Not on file Not on file Last Filed Vital Signs Vital Sign Reading Time Taken Comments Blood Pressure 106/60 12/03/2018 12:12 PM EDT Pulse 78 11/15/2021 10:59 AM EDT Temperature - - Respiratory Rate 16 01/15/2024 8:58 AM EST Oxygen Saturation 95% 12/03/2018 12:12 PM EDT Inhaled Oxygen Concentration - - Weight 63.5 kg (140 lb) 01/15/2024 8:58 AM EST Height 157.5 cm (5' 2 ) 01/15/2024 8:58 AM EST Body Mass Index 25.61 01/15/2024 8:58 AM EST Plan of Treatment Health Maintenance Due Date Last Done Comments Hepatitis C Screening 1961 COVID-19 Vaccine (#1) 1966 Depression Screening 1973 BMI Counseling 08/04/1979 Preventative Health Evaluation 08/04/1979 Cervical Cancer Screening (Pap Smear) 1982 Colon Cancer Screening (Colonoscopy) 2006 Breast Cancer Screening (Mammogram) 08/04/2011 Pneumococcal Vaccine (2 of 2 - PCV) 10/29/2017 10/29/2016 Shingrix-Zoster Vaccine (2 of 2) 04/18/2020 02/22/2020 RSV Adult > 60+ Yrs or (1 - Risk 60-74 years 1-dose series) 2021 Influenza Vaccine (#1) 2024 2, 12/12/2020, 11/20/2019, Additional history exists DTap / Tdap / Td (3 - Td or Tdap) 01/15/2028 01/14/2018, 01/24/2015 Hepatitis B Vaccines Aged Out No long er eligible based on patient's age to complete this topic RSV Ped < 20 months Aged Out No longe r eligible based on patient's age to complete this topic Care Teams Specialty Transformer Assembler Relationship Specialty Start Date End Date Nirmal Card MD PCP - General Family Medicine 11/06/23
--- OUTSIDE RECORDS SUMMARY | 2024-12-02 14:48 | XMS_ITS | Clinical Summary ---
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 Name Role Phone Nirmal Card MD Primary Care Provider Surgical History Surgery Date Site/Laterality Comments TONSILLECTOMY PROCEDURE:TONSILLECTOMY WISDOM TOOTH EXTRACTION PROCEDURE:WISDOM TOOTH EXTRACTION BREAST SURGERY PROCEDURE:REDUCTION MAMMAPLASTY LASIK 1998 Bilateral PROCEDURE:LASIK OTHER SURGICAL HISTORY 07/31/18 PROCEDURE:MOHS SURGERY RECONSTRUCTION OF NOSE 08/01/18 PROCEDURE:RECONSTRUCTION OF NOSE HYSTERECTOMY PROCEDURE:HYSTERECTOMY NOSE SURGERY PROCEDURE:NOSE SURGERY Medical History Medical History Date Comments Allergic rhinitis DX:Allergic rh initis Allergic DX:Allergic Asthma DX:Asthma;COMMEN T:Alleric asthma Food intolerance DX:Food intolerance;COMMENT:Gluten, lactose Pneumonia DX:Pneumonia;COM MENT:age 5,17 Bone spur DX:Bone spur Rosacea DX:Rosacea Graves disease DX:Graves diseas e Hypogammaglobulinemia (CMS/HCC V24) DX:Hypogammaglobulinemia (HCC);COMMENT:with normal immune function Basal cell carcinoma 2017 DX:Basal ce ll carcinoma;COMMENT:on nose Anorexia DX:Anorexia Fronto-temporal dementia (CM S/HCC V24, CMS/HCC V28) DX:Fronto-temporal dementia (HCC) Family History Medical History Relation Name Comments Allergic rhinitis Brother Atopy Brother bee allergy Diabetes Father Heart disease Father Other: Father committed suici de ALS Maternal Grandmother Allergic rhinitis Mother Dementia Mother Dementia Mother's Brother Diabetes Paternal Grandfather Diabetes Paternal Grandmother Allergic rhinitis Sister Breast cancer Sister Asthma Neg Hx Relation Name Status Comments Brother Alive Father Maternal Grandmother Mother Mother's Brother Paternal Grandfather Paternal Grandmother Sister Social History Tobacco Use Types Packs/Day Years Used Date Smoking Tobacco: Never Smokeless Tobacco: Never Alcohol Use Standard Drinks/Week Comments Yes 0 (1 standard drink = 0.6 oz pur e alcohol) Comments Unknown Sex and Gender Information Value Date Recorded Sex Assigned at Not on file Legal Sex Female 9:02 PM EST Gender Identity Not on file Sexual Orientation Not on file Obstetrics History Last Filed Vital Signs Vital Sign Reading Time Taken Comments Blood Pressure - - Pulse 78 11/15/2021 10:59 AM EDT Temperature - - Respiratory Rate - - Oxygen Saturation - - Inhaled Oxygen Concentration - - Weight 61.8 kg (136 lb 3.2 oz) 11/06/2023 2:06 P M EDT Height 157.5 cm (5' 2 ) 11/06/2023 2:06 PM EDT Body Mass Index 24.91 11/06/2023 2:06 PM EDT Plan of Treatment Health Maintenance Due Date Last Done Comments Breast Cancer Screening 1961 COVID-19 Vaccine (#1) 1966 Zoster Vaccines (1 of 2) 1980 Cervical Cancer Screening: P ap Smear 1982 Pneumococcal Vaccine: 50+ Years (2 of 2 - PCV) 10/29/2017 10/29/2016 RSV Immunization Adult Patients (1 - Risk 60-74 years 1-dose series) 2021 Depression Screening 03/11/2024 Colorectal Cancer Screening: Colonoscopy 04/28/2024 HIV Screening 04/28/2024 Hepatitis C Screening 04/28/2024 Social Influencers of Health Screening 04/28/2024 Influenza Vaccine (#1) 2024 7, 12/15/2015 DTaP,Tdap,and Td Vaccines (2 - Td or Tdap) 01/24/2025 01/24/2015 HIB Vaccines Aged Out No longer eligi ble based on patient's age to complete this topic HPV Vaccines Aged Out No longer eligi ble based on patient's age to complete this topic Hepatitis A Vaccines Aged Out No long er eligible based on patient's age to complete this topic Hepatitis B Vaccines Aged Out No long er eligible based on patient's age to complete this topic IPV Vaccines Aged Out No longer eligi ble based on patient's age to complete this topic MMR Vaccines Aged Out No longer eligi ble based on patient's age to complete this topic Meningococcal ACWY Vaccine Aged Out N o longer eligible based on patient's age to complete this topic Meningococcal B Vaccine Aged Out No l onger eligible based on patient's age to complete this topic RSV Immunization Patients Under 20 months Aged Out No longer eligible b ased on patient's age to complete this topic Varicella Vaccines Aged Out No longer eligible based on patient's age to complete this topic Care Teams Hydroelectric Plant Mechanical Engineer Relationship Specialty Start Date End Date Nirmal Card MD PCP - General 11/06/23
--- OUTSIDE RECORDS SUMMARY | 2024-12-02 14:48 | XMS_ITS | Clinical Summary ---
Author Organization [facility] Address [address] [place] [address] Care Team Providers Care Developer Advisor Name Role Phone Lexi Stokes Primary Care Provider [phone] Lisette Zacarias MACHINE SETUP OPERATOR Unavailable [phone] Allergies Active Allergy Reactions Criticality Noted Date Comments Erythromycin GI Intolerance/Nausea/ Vomiting Low 08/01/2017 Levofloxacin Rash/Dermatitis Low 07/29/2017 Penicillins Rash/Dermatitis Low 07/29/2017 Tetracycline Other (See Comments) 08/01/2017 lethargy Thimerosal (Thiomersal) Other (See Comments) 10/10/2016 Had eye problem after using contact solution with thimerosal so now avoids vaccines with thimerosal Medications * This document contains information received from the source organization and may not represent a complete record from that organization. levothyroxine (SYNTHROID, LEVOTHROID) 100 MCG tablet Take 100 mcg by mouth daily on an empty stomach. Active sertraline (ZOLOFT) 25 MG tablet Take 25 mg by mouth daily. Active folic acid (FOLVITE) 1 MG tablet Take 1 mg by mouth daily. Active buPROPion (WELLBUTRIN XL) 300 MG 24 hr tablet Take 300 mg by mouth every morning. Swallow whole; do not crush, chew, or divide. Active cholecalciferol (VITAMIN D3) 1000 units tablet Take 1,000 Units by mouth daily. Active fluticasone (FloNASE) 50 mcg/spray nasal spray 1 spray into each nostril daily. Active HYDROcodone-long taminophen (NORCO) 5-325 mg per tabletIndicatio ns:Squamous cell cancer of skin of [place] Take 1-2 tablets by mouth 4 times daily (every 6 hours) as needed for moderate pain or severe pain. Max Daily Amount: 8 tablets 10 tablet 07/31/2017 Active cyanocobalamin (VITAMIN B-12) 1000 MCG/ML injection Active fexofenadine (MILTON) 60 MG tablet Take 60 mg by mouth. Active Syringe/Needle, Disp, (SYRINGE 3CC/25GX5/8 ) 25G X 5/8 3 ML Misc every thirty (30) days. 02/18/2014 Active estradiol (ESTRACE) 0.01 % vaginal cream 1 gram PV 2 nights/week. 05/23/2016 Active Cholecalciferol (VITAMIN D3) 2000 units capsule Take by mouth. Active levothyroxine (SYNTHROID, LEVOTHROID) 88 MCG tablet Take by mouth. Active fluticasone (FloNASE) 50 mcg/spray nasal spray into each nostril. Active Folic Acid 0.8 MG Cap take 1 tab daily po Active Social History Tobacco Use Types Packs/Day Years Used Date Smoking Tobacco: Never Smokeless Tobacco: Never Alcohol Use Standard Drinks/Week Comments Yes 0 (1 standard drink = 0.6 oz pur e alcohol) Comments No Sex and Gender Information Value Date Recorded Sex Assigned at Not on file Legal Sex Female 2:30 PM EDT Gender Identity Not on file Sexual Orientation Not on file Last Filed Vital Signs Vital Sign Reading Time Taken Comments Blood Pressure 120/73 08/01/2017 9:30 AM EDT Pulse 53 08/01/2017 9:30 AM EDT Temperature 36.1 C (97 F) 08/01/2017 8:43 AM EDT Respiratory Rate 16 08/01/2017 9:30 AM EDT Oxygen Saturation 100% 08/01/2017 9:30 AM EDT Inhaled Oxygen Concentration - - Weight - - Height - - Body Mass Index - - Plan of Treatment Health Maintenance Due Date Last Done Comments Hepatitis C Virus Screening 1961 HIV Screening 1974 DTaP/Tdap/Td Vaccines (1 - Tdap) 1980 Pap Smear (Ages 21-65) 1982 Mammogram 2001 Colonoscopy 2006 Pneumococcal Vaccines 50+ (1 of 1 - PCV) 08/04/2011 Zoster (Shingles) Vaccine (1 of 2) 08/04/2011 Influenza Vaccine 10/09/2024 12/02/2019 COVID-19 Vaccine (1 - 2023-2 5 season) 2024 RSV Vaccine 60 years and old er and Patients (1 - 1-dose 75+ series) 2036 Hepatitis B Vaccines Aged Out No long er eligible based on patient's age to complete this topic [facility] Directives * Full Code (Latest Code Status on File) Date Activated Date Inactivated Comments 08/01/2017 6:36 AM Care Teams Developer Advisor Relationship Specialty Start Date End Date Lexi Stokes PA [address] [place] [id number] PCP - General 07/26/17 Lisette Zacarias LPC [address] [place] [id number] Clinician Social Work 04/25/22
--- OUTSIDE RECORDS SUMMARY | 2024-12-02 14:48 | XMS_ITS | Clinical Summary ---
Author Organization [facility] Address [address] [place] [address] Phone Care Team Providers Care Design Draftsman Name Role Phone Edison Campbell MD Primary Care Provider [phone] Allergies Active Allergy Reactions Criticality Noted Date Comments Erythromycin Nausea And Vomiting Low 08/01/2017 Erythromycin Base 07/15/2020 Levofloxacin Hives,Rash,Other (see comments) High 12/31/2013 5 days after finished medication developed hives. Penicillins Hives,Rash,Other (see comments) High 12/31/2013 Tetracycline Other (see comments),Rash Low 06/14/2014 lethargy Not functional, unable to put a sentence together Thimerosal (Thiomersal) Other (see comments) 08/17/2015 Had eye problem after using contact solution with thimerosal so now avoids vaccines with thimerosal Had eye problem after using contact solution with thimerosal so now avoids vaccines with thimerosal it blew up my lower eyelid Medications Probiotic Product (PROBIOTIC PO) Take 1 capsule by mouth 1 (one) time each day Active LACTOBACILLUS PO Active folic acid (FOLVITE) 1 MG tablet folic acid take 1 tab daily po Activ e FOLIC ACID PO Take 1 mg by mouth daily Active azithromycin (ZITHROMAX) 250 MG tablet azithromycin 250 mg tablet Active cholecalcifero l (VITAMIN D-3) 25 MCG (1000 UT) capsule 1 capsule at bed time Active calcium carbonate (TUMS) 500 MG chewable tablet Chew 2 tablets 1 (one) time each day Activ e ciclopirox (PENLAC) 8 % solution Apply topically 01/25/20 16 Active Cyanocobalamin 1000 MCG/ML liquid Comments: Patient Notes: 1x Monthly Active Estradiol 10 MCG tablet estradiol 10 mcg vaginal tablet Active ferrous sulfate 325 (65 Fe) MG EC tablet Take 325 mg by mouth daily Active fexofenadine (MILTON) 60 MG tablet Take 60 mg by mouth Active fluconazole (DIFLUCAN) 150 MG tablet daily as needed. 03/23/19 15 Active folic acid (FOLVITE) 1 MG tablet Take 1 mg by mouth daily Active HYDROcodone-ac etaminophen (NORCO) 5-325 MG per tablet Take 1-2 tablets by mouth every 6 (six) hours if needed 08/01/19 18 Active levothyroxine (Synthroid) 100 MCG tablet Take 1 tablet by mouth 1 (one) time each day Active linaCLOtide 145 MCG capsule Take 145 mcg by mouth 04/06/19 17 Active magnesium oxide (MAG-OX) 400 MG tablet Take 400 mg by mouth daily Active omeprazole (PriLOSEC) [address] capsule 1 CAPSULE 30 MINUTES BEFORE MORNING MEAL ONCE A DAY ORALLY 30 DAY(S) 05/25/19 20 Active Ospemifene 60 MG tablet Take 1 tablet by mouth 1 (one) time each day Active oxyCODONE-acet aminophen (PERCOCET) 2.5-325 MG per tablet TAKE 1 TABLET BY ORAL ROUTE EVERY 6 HOURS NEEDED FOR 3 DAYS 09/30/19 20 Active sertraline (ZOLOFT) 25 MG tablet Take 25 mg by mouth daily Active sulfamethoxazo le-trimethopri m (BACTRIM DS,SEPTRA DS) 800-160 MG per tablet sulfamethoxazole 800 mg-trimethoprim 160 mg tablet 05/08/19 20 Active Syringe/Needle , Disp, 25G X 5/8 3 ML misc every thirty (30) days. 02/19/20 14 Active tuberculin (Tubersol) 5 UNIT/0.1ML injection 1 mL Active urea (CARMOL) 40 % cream Apply topically daily 01/25/20 16 Active fluticasone (Flonase) 50 MCG/ACT nasal spray Administer 1 spray into each nostril 1 (one) time each day Activ e buPROPion XL (Wellbutrin XL) 300 MG 24 hr tablet Take 1 tablet by mouth 1 (one) time each day 10/05/19 17 Active CYANOCOBALAMIN ER PO Active cyanocobalamin (VITAMIN B-12) 1000 MCG/ML injection INJECT 1 ML ONCE A MONTH 04/28/19 21 Active Divigel 1.25 MG/1.25GM gel APPLY 1 PACKET BY TOPICAL ROUTE DAILY FOR 70 DAYS 06/01/19 21 Active Active Problems Problem Noted Date Diagnosed Date Allergic asthma 07/15/2020 Hypokalemia 07/15/2020 Renal function tests outside reference range 09/2020 Allergic disposition 06/12/2017 Overview (07/15/2020): mold, dogs, cats mold, dogs, cats Cobalamin deficiency 06/12/2017 Graves' disease 06/12/2017 Overview (07/15/2020): Normal ocular exam No diplopia No lid retraction Normal ocular exam No diplopia No lid retraction Gluten sensitivity 06/12/2017 Encounter for screening for diseases of the blood and blood-forming organs and certain disorders involving the immune mechanism 06/12/2017 Hypothyroidism following radioiodine therapy 06/2017 History of laser assisted in situ keratomileusis 06/12/2017 Overview (07/15/2020): Minimal resid ref error Manifest refraction Minimal resid ref error Manifest refraction Reactive hypoglycemia 06/12/2017 Polyp of gallbladder 06/12/2017 Overview (07/15/2020): 3mm, no change on serial testing 3mm, no change on serial testing Iron deficiency anemia 05/31/2017 Intracranial meningioma 01/01/2017 Chronic constipation 12/10/2016 Gastroesophageal reflux disease 11/28/2016 Hemorrhoid 11/28/2016 Tubular adenoma of colon 11/28/2016 Rosacea 11/28/2016 History of anemia vitamin B12 deficient 11/29/19 17 Depressive disorder 11/27/2016 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 Lactose intolerance 11/27/2016 Osteopenia 11/27/2016 Hypothyroidism 11/27/2016 Allergic rhinitis caused by animals 10/10/2016 Allergy to drug 10/10/2016 Chronic fatigue 10/10/2016 H/O: asthma 10/10/2016 Hypogammaglobulinemia 10/10/2016 History of polyp of colon 05/21/2016 Weight loss 03/17/2016 Decrease in appetite 01/03/2016 Patient encounter status 12/16/2015 Overview (07/15/2020): Check if completed DATE COMPLETED RESULT DUE DEFERRED [x] Mammogram due normal [] [x] Pap smear 06/2015 normal 2017 [] [x] Colonoscopy 2010 polyp 2015 [] [] DEXA [] [] [] Chronic kidney disease stage 3 12/15/2015 Bilateral cataracts 08/17/2015 Overview (07/15/2020): V minimal V minimal Immunizations Immunization Administration Dates Next Due Influenza, Quadrivalent, Preservative Free 12/03,12/15/2015 Influenza, Quadrivalent, With Preservative 11/05 Influenza, Unspecified 12/14/2014 Pneumococcal Polysaccharide 10/29/2016 Tdap 01/14/2018,01/24/2015 Family History Medical History Relation Comments Diabetes Father Heart disease Father Hypertension Father Cancer Sibling breast Relation Status Comments Father Unknown Mother Sibling Social History Tobacco Use Types Packs/Day Years Used Date Smoking Tobacco: Never Alcohol Use Standard Drinks/Week Comments Yes 0 (1 standard drink = 0.6 oz pure alcohol) Alcoholic Drinks/day: Occasional social drink Comments Unknown Sex and Gender Information Value Date Recorded Sex Assigned at Not on file Legal Sex Female 4:55 PM EST Gender Identity Not on file Sexual Orientation Not on file Last Filed Vital Signs Vital Sign Reading Time Taken Comments Blood Pressure 124/70 05/12/2019 12:00 PM EST Pulse 84 05/12/2019 12:00 PM EST Temperature - - Respiratory Rate - - Oxygen Saturation 99% 05/12/2019 12:00 PM EST Inhaled Oxygen Concentration - - Weight 45.2 kg (99 lb 9.6 oz) 05/12/2019 12:00 P M EST Height 157.5 cm (5' 2 ) 05/12/2019 12:00 PM EST Body Mass Index 18.22 05/12/2019 12:00 PM EST Plan of Treatment Health Maintenance Due Date Last Done Comments Breast Cancer Screening 1961 Colorectal Cancer Screening: Annual FOBT 2010 Colorectal Cancer Screening: Colonoscopy 2010 Colorectal Cancer Screening: Sigmoidoscopy 2010 Pneumococcal Vaccine: 50+ Years (2 of 2 - PCV) 10/29/2017 10/29/2016 Influenza Vaccine (#1) 2024 8, 11/05/2016, 12/15/2015, Additional history exists Pneumococcal Vaccine: Peds (0 to 5 Years) and At-Risk Patients (6 to 49 Years) Discontinued 10/29/2016 Hepatitis B Vaccine Aged Out No longe r eligible based on patient's age to complete this topic Insurance [place] Care Teams Design Draftsman Relationship Specialty Start Date End Date Edison Campbell MD [address] [facility], [address] [place] [address] PCP - General 03/21/20
== END 2024-12-02 11:50 | disposition home or self-care (01) ==
LOC: CF 11:49
DX: Z13.89 Encounter for screening for other disorder (principal)